=== PATIENT | female | born 1930 | race Caucasian/White ===

== ENCOUNTER 2017-04-09 12:51 | Emergency (ER) | payer MEDICARE ==
[~2017-04-09] VITALS: Ht 149.9 cm; Wt 58.2 kg
[~2017-04-09 12:51] MED LIST: ASPI-628 PO; ATEN25TA PO; CLOP75TA3 PO; DONE5TAB4 PO; LISI1TAB9 PO; NITROSTAT; NORT10CA PO; OMEP20CA11 PO; SIMV40TA5 PO
[2017-04-09 13:06] VITALS: BP 165/49; PULSE 76; RESP 18; O2SAT 99
[2017-04-09 14:29] LABS: APPEARANCE,URINE HAZY (CLEAR,HAZY); COLOR,URINE STRAW (YELLOW); OCCULT BLOOD,URINE SMALL (NEGATIVE); PH,URINE 7.5 (5.0-8.0); UROBILINOGEN,URINE NORMAL (NORMAL)
--- NOTE | 2017-04-09 14:30 | ED.REPORT ---
HPI-Dizziness / Weakness Date of Service Apr 09, 2017 ED Provider: Elmer Guzman PA-C Gina is an 86-year-old female with a history of dementia, CVA, CAD presenting via EMS for evaluation following an episode of dizziness. Her reports that at approximately 11:30 this morning as she was putting on her makeup in the bathroom she called to him that she was dizzy and could not move. He helped her to a seated position. She did not fall, strike her head, lose consciousness. Family reports that she complained of abdominal pain and weakness, though she denies it currently. Denies neurological symptoms such as weakness, difficulty speaking, asymmetrical facial motion. Denies chest pain , palpitations, cough, wheeze, shortness of breath, headache, vomiting, diarrhea , dysuria, hematuria, frequency. Nursing Notes Stated Complaint: ABDOMINAL PAIN Chief Complaint: General Complaint Nursing Notes Reviewed: Yes Allergies: Coded Allergies: No Known Allergies (Unverified Allergy, Unknown, 04/09/17) Scheduled ([Nitrostat]) VERIFY STRENGTH Aspirin (Aspir 81) 81 Mg Tablet. 81 MG PO DAILY Atenolol (Atenolol) 25 Mg Tablet 25 MG PO BID Clopidogrel Bisulfate (Plavix) 75 Mg Tablet 75 MG PO DAILY Donepezil (Aricept) 5 Mg Tablet 5 MG PO PM Lisinopril / HCTZ 20-12.5 mg (Lisinopril / HCTZ 20-12.5 mg) 1 Each Tablet 1 EACH PO DAILY Nitrofurantoin Macrocrystal (Nitrofurantoin Macrocrystal) 100 Mg Capsule 100 MG PO QID Nortriptyline (Nortriptyline) 10 Mg Capsule 10 MG PO DAILY AFTER DINNER Simvastatin (Simvastatin) 40 Mg Tablet 40 MG PO PM Scheduled PRN Omeprazole (Omeprazole) 20 Mg Capsule. 0 PO PRN PRN PRN FOR STOMACH General Time Seen by MD: 13:52 Chief Complaint Dizzy Past Medical History Past Medical History CAD CVA Past Surgical History Coronary bypass 25 Stent placement Review of Systems General: Denies fever, chills, malaise. HEENT: Denies congestion, headache, sore throat. Respiratory: Denies dyspnea, cough, shortness of breath, wheezing. Cardiovascular: Denies chest pain, palpitations. Gastrointestinal: Denies vomiting, diarrhea, abdominal pain. Genitourinary: Denies frequency, urgency, dysuria, hematuria. Otherwise as noted in HPI. Physical Exam General: Well appearing, well developed, well nourished, no acute distress. Head: Atraumatic, normocephalic. No mastoid tenderness. Eyes: No scleral icterus or injection. No discharge. PERRL. Vision grossly intact. Ears: Pinna and tragus nontender with manipulation. External auditory canal patent, atraumatic and without discharge. Tympanic membrane pandya, shiny and translucent without fluid, bulging, retraction or perforation. Hearing grossly intact. Nose: Symmetrical, nares patent without discharge. No frontal or maxillary sinus tenderness. Mouth/pharynx: normal dentition, mucus membranes moist. Tonsils 2+ and symmetrical, uvula midline. Pharynx noninjected, no cobblestoning or discharge. Voice clear. Neck: No tenderness or lymphadenopathy. Trachea midline. Respiratory: Regular rate and rhythm. Breath sounds present, clear to auscultation and equal bilaterally. No respiratory distress. No increased work of breathing, speaks in complete sentences. Cardiovascular: Regular rate and rhythm, without murmur, gallop or rub. No pedal edema. Gastrointestinal: Abdomen flat and non-tender without guarding or rebound. Bowel sounds normoactive. Skin: Warm and dry. Back: Normal to inspection, negative CVA tenderness. Neurological: Normal finger-nose, rapid hand, heel-mahmood. Negative pronator or leg drift. Cranial nerves: Vision grossly intact, PERRL, EOMI. Facial motion symmetrical, sensation to light touch over forehead, maxilla and mandible present and equal B /L. Voice clear and fluent, no drooling/pooling of saliva, uvula rises midline. Psychological: Alert and oriented. Speech appropriate, linear and logical. Behavior appropriate. Difficulty recalling events of the day. Initial Vital Signs Vital Signs (First) Date Time Temp Pulse Resp B/P Pulse Ox O2 Delivery O2 Flow Rate FiO2 04/09/17 13:06 36.5 76 18 165/49 99 Room Air Elevated blood pressure Interpretation & Diagnostics Lab Results Interpretation Result Diagram: 04/09/17 1425 04/09/17 1425 Test 04/09/17 14:04 04/09/17 14:25 Urine Color Straw (YELLOW) Urine Appearance Hazy (CLEAR,HAZY) Urine pH 7.5 (5.0-8.0) Urine Specific [place] 1.010 (1.003-1.035) Urine Protein Negativemg/dL (NEG,TRACE) Urine Glucose (UA) Negativemg/dL (NEGATIVE) Urine Ketones Negativemg/dL (NEGATIVE) Urine Occult Blood Small (NEGATIVE) Urine Nitrite Negative (NEGATIVE) Urine Bilirubin Negative (NEGATIVE) Urine Urobilinogen Normalmg/dL (NORMAL) Urine Leukocyte Esterase Moderate (NEGATIVE) Urine RBC 0-2/hpf (0-2) Urine WBC 11-50/hpf (0-5) Urine Epithelial Cells Occasional/hpf (NONE-MOD) Urine Crystals None seen (NONE SEEN) Urine Bacteria Moderate/hpf (NONE-FEW) Urine Hyaline Casts None/lpf (NONE) Urine Granular Casts None seen (NONE SEEN) Urine Waxy Casts None seen (NONE SEEN) Urine Red Blood Cell Casts None seen (NONE SEEN) Urine White Blood Cell Casts None seen (NONE SEEN) Urine Mucus None seen (None Seen) Urine Trichomonas None seen (NONE SEEN) Urine Yeast None (NONE SEEN) Urinalysis Comment Transitional epi Urine Culture Reflexed Indicated White Blood Count 8.5th/mm3 (3.8-10.1) Red Blood Count 3.91mil/mm3 (3.90-5.20) Hemoglobin 12.4g/dL (12.0-15.6) Hematocrit 37.9% (35.0-46.0) Mean Corpuscular Volume 96.9fL (81-100) Mean Corpuscular Hemoglobin 31.7pg (27.0-35.0) Mean Corpuscular Hemoglobin Concent 32.7% (32.0-37.0) Red Cell Distribution Width 12.8% (12.3-15.4) Platelet Count 179bil/L (150-400) Neutrophils (%) (Auto) 72.7% (40-74) Lymphocytes (%) (Auto) 15.9% (14-46) Monocytes (%) (Auto) 10.5% (4-12) Eosinophils (%) (Auto) 0.5% (0-5) Basophils (%) (Auto) 0.2% (0-3) Sodium Level 141mEq/L (134-144) Potassium Level 4.4mEq/L (3.5-5.2) Chloride Level 104mEq/L (97-108) Carbon Dioxide Level 25mmol/L (18-29) Blood Urea Nitrogen 12mg/dL (8-27) Creatinine 0.60mg/dL (0.57-1.00) Estimat Glomerular Filtration Rate 135mL/min (>59) Glucose Level 88mg/dL (60-99) Calcium Level 8.8mg/dL (8.5-10.1) Magnesium Level 2.3mg/dL (1.6-2.6) Total Bilirubin 0.3mg/dL (0.0-1.2) Aspartate Amino Transf (AST/SGOT) 18U/L (0-50) Alanine Aminotransferase (ALT/SGPT) 10U/L (0-32) Alkaline Phosphatase 50U/L (25-165) Total Protein 6.3g/dL (6.4-8.4) Albumin 3.8g/dL (3.4-5.0) Lipase 35U/L (13-60) Hold Jose Top Tube Received (Received) Re-Eval/Medical Decision Med Decision/Clinical Course 86-year-old female with a history of dementia, coronary artery disease, CVA presenting via EMS after a single episode of dizziness and weakness and associated abdominal pain which occurred while standing in her bathroom, putting on her makeup. She was helped to a seated position by her , denies striking her head, losing consciousness, neck pain, chest pain, palpitations, shortness of breath. Denies other complaints. Patient immediately states she feels well and wishes to go home. Physical examination reveals a oriented but mildly confused woman with a normal neurological evaluation. Heart tones normal, lungs clear, abdomen nontender. EKG is reassuring and unchanged from previous. CMP is unimpressive, CBC is normal. Urinalysis is suggestive of possible UTI with a hazy appearance small occult blood moderate leukocyte esterase, 11-50 white blood cells and moderate urine bacteria.l Discussed the possibility of performing a CT scan with the patient and her family. The patient does not wish to have this done. I expressed that my concern for intracranial bleeding or mass is quite low but that it would require CT to rule it out. CT is deferred. Patient and her family feel comfortable being discharged with return precautions. Provided prescription for nitrofurantoin. Advised regarding primary care follow-up, provided emergency return precautions. Patient verbalized understanding of, and consent to, the plan. I discussed this case with Dr. Garza, who expresses agreement. Patient Discharge & Departure Impression: Primary Impression: Cystitis Additional Impression: Pre-syncope Disposition: Home Discharge Condition All VS Reviewed: Yes Condition: Stable Additional Instructions: Evaluation for an episode of dizziness and weakness in the emergency department consists of history, physical examination, urinalysis, blood work and EKG all of which are reassuring that this is unlikely to have been caused by an immediately dangerous conditions such as a heart attack or stroke. I believe you are is stable and safe to go home. We did notice a urinary tract infection. We will treat this with nitrofurantoin , 100 mg to be taken 4 times a day for 7 days. This is best taken with food. Follow-up with your primary care provider early next week. Return to emergency department for any new or worsening symptoms including chest pain, shortness of breath, altered mental status, headache or stroke symptoms Referrals: Angel Wilder MD (PCP) EDSupervising Provider for APC: Edwin Garza MD, Allen L MD Turner, Seth PA-C Apr 09, 2017 14:30
[2017-04-09 14:35] LABS: BASOPHILS % (AUTO) 0.2 % (0-3); EOSINOPHILS % (AUTO) 0.5 % (0-5); MONOCYTES % (AUTO) 10.5 % (4-12); Mean Corpuscular Hemoglobin 31.7 pg (27.0-35.0); Mean Corpuscular Volume 96.9 fL (81-100); NEUTROPHILS % (AUTO) 72.7 % (40-74); Platelet Count 179 bil/L (150-400)
[2017-04-09 14:59] LABS: Magnesium 2.3 mg/dL (1.6-2.6)
[2017-04-09] MEDS ORDERED: NITR100C PO (15:24)
[2017-04-09 15:45] VITALS: BP 135/47; PULSE 79; RESP 16; O2SAT 99
== END 2017-04-09 15:46 | disposition home or self-care (01) ==
LOC: EDBD 12:51 → SED 12:51
DX: N30.90 Cystitis, unspecified without hematuria (principal); R55 Syncope and collapse; I25.10 Atherosclerotic heart disease of native coronary artery without angina pectoris; F03.90 Unspecified dementia, unspecified severity, without behavioral disturbance, psychotic disturbance, mood disturbance, and anxiety; Z86.73 Personal history of transient ischemic attack (TIA), and cerebral infarction without residual deficits; Z79.82 Long term (current) use of aspirin; Z95.5 Presence of coronary angioplasty implant and graft

== ENCOUNTER 2017-04-17 14:43 | Inpatient (IN) | payer MEDICARE ==
[~2017-04-17] VITALS: Ht 149.9 cm; Wt 62.6 kg
[2017-04-17] VITALS (8 sets, daily range): BP systolic 91–134; BP diastolic 28–64; PULSE 77–89; RESP 12–23; O2SAT 94–100
[~2017-04-17 14:43] MED LIST changes: +NITR100C PO
--- NOTE | 2017-04-17 14:56 | ED.REPORT ---
HPI-General Illness Date of Service Apr 17, 2017 ED Provider: Will Motley MD The patient is an 86-year-old female with a history of dementia, CVA, CAD presents to the ED via EMS accompanied by her family due to increased, generalized weakness for the past week and increasing in severity this morning. Associated symptoms include weakness, fever, shortness of breath, back pain, and increased confusion. This morning, her son was assisting her to the bathroom. The patient is normally independent and ambulatory, but today, she is having difficulty walking. Her reports she is more disoriented today then the past week. A week ago, (04/09/17) she came to the Emergency Department following an episode of dizziness at home. The patient was in the bathroom and called for her . She was standing up but unable to walk. She was diagnosed with a UTI and was mildly dehydrated. The patient was given fluids and discharged on antibiotics which she has been taking as directed. Her symptoms have not been improving. Her denies a cough, skin infections, recent falls or hit her head. The patient takes 0.25mg Ativan throughout the day and 1mg at bedtime. Nursing Notes Stated Complaint: WEAKNESS Chief Complaint: General Complaint Nursing Notes Reviewed: Yes Allergies: Coded Allergies: No Known Allergies (Unverified Allergy, Unknown, 04/17/17) Scheduled Acetaminophen (Acetaminophen) 500 Mg Capsule 500 MG PO TID Atenolol (Atenolol) 25 Mg Tablet 25 MG PO BID Clopidogrel Bisulfate (Plavix) 75 Mg Tablet 75 MG PO DAILY Levetiracetam (Keppra) 500 Mg Tablet 500 MG PO BID Mirtazapine (Remeron) 15 Mg Tablet 15 MG PO HS Nitrofurantoin Macrocrystal (Nitrofurantoin Macrocrystal) 100 Mg Capsule 100 MG PO QID Nortriptyline (Nortriptyline) 10 Mg Capsule 10 MG PO DAILY AFTER DINNER Simvastatin (Simvastatin) 40 Mg Tablet 40 MG PO PM Scheduled PRN Acetaminophen/Codeine 300-30mg (Acetaminophen/Codeine 300-30mg) 1 Each Tablet 1 TABLET PO 2000 daily PRN PRN Pain Docusate Sodium (Colace) 100 Mg Capsule 100 MG PO BID PRN PRN For Constipation Lorazepam (Ativan) 0.5 Mg Tablet 0.25 MG PO 1400 PRN PRN For Insomnia Omeprazole (Omeprazole) 20 Mg Capsule.dr 0 PO PRN PRN PRN FOR STOMACH General Time Seen by MD: 14:54 Chief Complaint Weakness Hx Obtained From: Patient, Spouse, Daughter Arrived By: Ambulance Sudden in Onset?: Yes Onset Occurred: 1 week ago Context of Onset: Recent antibiotic use Symptom Duration: Since onset Recent Healthcare: Recent doctor visit Similar Sx Previous: Yes Past Medical History Past Medical History CAD CVA Past Surgical History Coronary bypass 25 Stent placement Social History Other Social History: Good social support, , Local resident Ambulatory Status Independent Review of Systems Full Review of Systems Constitutional: Reports: Fever, Weakness - generalized Respiratory: Reports: Shortness of breath, Denies: Non-productive cough GI: Reports: Abdominal pain Musculoskeletal: Reports: Back pain Skin: Denies Rash Neurologic: Reports: Dizziness, Problem walking, Weakness, Denies: Change LOC Psychiatric: Reports: Confusion Complete sys rev & neg: except as marked. Physical Exam Vital Signs Vital Signs Date Time Temp Pulse Resp B/P Pulse Ox O2 Delivery O2 Flow Rate FiO2 04/17/17 18:32 77 20 91/43 94 Room Air 04/17/17 17:31 82 15 103/28 94 Room Air 04/17/17 16:38 37.2 86 12 114/33 96 04/17/17 15:19 85 23 123/33 100 Room Air 04/17/17 14:44 39.2 89 16 134/43 96 Room Air Initial VS: Reviewed General/Constitutional: Awake, Alert Head / Eyes: Atraumatic, Normocephalic, PERRL, EOMI ENT: Atraumatic, Mucous membranes moist Respiratory / Chest: No respiratory distress bibasilar crackles well healed sternotomy scar Cardiovascular: Heart rate NL, Regular rhythm, Heart sounds NL, No gallop, No murmurs, No rubs Abdomen: Non-tender, BS normoactive well-healed, mid-abdominal surgical scar Upper Extremities Upper Extremity / MS: Atraumatic, Inspection NL, No deformity Lower Extremity / Pelvis / MS: Atraumatic, Inspection NL, No deformity, No edema Right Leg / Calf: Negative: Swelling present..., Tenderness present... Left Leg / Calf: Negative: Swelling present..., Tenderness present... Neurologic: Oriented X3, Speech NL, No motor deficits speech fluent Psychiatric: Affect NL, Mood NL Interpretation & Diagnostics Lab Results Interpretation Result Diagram: 04/17/17 1450 04/17/17 1450 Test 04/17/17 14:50 04/17/17 15:10 White Blood Count 18.6th/mm3 (3.8-10.1) Red Blood Count 4.06mil/mm3 (3.90-5.20) Hemoglobin 13.0g/dL (12.0-15.6) Hematocrit 39.3% (35.0-46.0) Mean Corpuscular Volume 96.8fL (81-100) Mean Corpuscular Hemoglobin 32.0pg (27.0-35.0) Mean Corpuscular Hemoglobin Concent 33.1% (32.0-37.0) Red Cell Distribution Width 13.1% (12.3-15.4) Platelet Count 170bil/L (150-400) Neutrophils (%) (Auto) 91.0% (40-74) Lymphocytes (%) (Auto) 1.3% (14-46) Monocytes (%) (Auto) 6.6% (4-12) Eosinophils (%) (Auto) 0.5% (0-5) Basophils (%) (Auto) 0.1% (0-3) Sodium Level 133mEq/L (134-144) Potassium Level 4.1mEq/L (3.5-5.2) Chloride Level 96mEq/L (97-108) Carbon Dioxide Level 22mmol/L (18-29) Blood Urea Nitrogen 20mg/dL (8-27) Creatinine 0.77mg/dL (0.57-1.00) Estimat Glomerular Filtration Rate 101mL/min (>59) Glucose Level 158mg/dL (60-99) Calcium Level 9.1mg/dL (8.5-10.1) Total Bilirubin 0.5mg/dL (0.0-1.2) Aspartate Amino Transf (AST/SGOT) 20U/L (0-50) Alanine Aminotransferase (ALT/SGPT) 10U/L (0-32) Alkaline Phosphatase 50U/L (25-165) Troponin T < 0.010ug/L (0.0-0.011) Total Protein 6.8g/dL (6.4-8.4) Albumin 3.7g/dL (3.4-5.0) Urine Color Dark yellow (YELLOW) Urine Appearance Clear (CLEAR,HAZY) Urine pH 7.0 (5.0-8.0) Urine Specific [place] 1.015 (1.003-1.035) Urine Protein Negativemg/dL (NEG,TRACE) Urine Glucose (UA) Negativemg/dL (NEGATIVE) Urine Ketones Negativemg/dL (NEGATIVE) Urine Occult Blood Small (NEGATIVE) Urine Nitrite Negative (NEGATIVE) Urine Bilirubin Negative (NEGATIVE) Urine Urobilinogen Normalmg/dL (NORMAL) Urine Leukocyte Esterase Trace (NEGATIVE) Urine RBC 11-50/hpf (0-2) Urine WBC 0-5/hpf (0-5) Urine Epithelial Cells Few/hpf (NONE-MOD) Urine Crystals None seen (NONE SEEN) Urine Bacteria Few/hpf (NONE-FEW) Urine Hyaline Casts None/lpf (NONE) Urine Granular Casts None seen (NONE SEEN) Urine Waxy Casts None seen (NONE SEEN) Urine Red Blood Cell Casts None seen (NONE SEEN) Urine White Blood Cell Casts None seen (NONE SEEN) Urine Mucus Present (None Seen) Urine Trichomonas None seen (NONE SEEN) Urine Yeast None (NONE SEEN) Urinalysis Comment None Urine Culture Reflexed Indicated Lactic Acid Level 1.6mmol/L (0.4-2.0) X-Ray Chest Interpretation Chest Xray Interpretation: CHEST X-RAY IMPRESSION: 1. Small pleural effusions and mild pulmonary edema. Dictated by: Ryne Hui M.D. on 04/17/2017 at 17:33 Approved by: Ryne Hui M.D. on 04/17/2017 at 17:34 View: Portable Interpretation / Wet Read by: Interpret - Radiologist CT Abd / Pelvis Interpretation ABDOMINAL CT IMPRESSION: 1. No imaging evidence of pyelonephritis. No hydronephrosis or perinephric abscess. 2. Bilateral indeterminate adrenal nodules. Further evaluation may be obtained with adrenal protocol MRI or CT if clinically indicated. 3. Small hiatal hernia. 4. Colonic diverticulosis. Dictated by: Ryne Hui M.D. on 04/17/2017 at 17:07 Approved by: Ryne Hui M.D. on 04/17/2017 at 17:12 Study type: Abdominal CT no contrast Interpretation / Wet Read by: Interpret - Radiologist Re-Eval/Medical Decision Med Decision/Clinical Course The patient is an 86-year-old female with a history of dementia, CVA, CAD presents to the ED via EMS accompanied by her family due to increased, generalized weakness for the past week and increasing in severity this morning. Associated symptoms include weakness, fever, shortness of breath, back pain, and increased confusion. This morning, her son was assisting her to the bathroom. The patient is normally independent and ambulatory, but today, she is having difficulty walking. Her reports she is more disoriented today then the past week. A week ago, (04/09/17) she came to the Emergency Department following an episode of dizziness at home. The patient was in the bathroom and called for her . She was standing up but unable to walk. She was diagnosed with a UTI and was mildly dehydrated. The patient was given fluids and discharged on antibiotics which she has been taking as directed. Her symptoms have not been improving. Her denies a cough, skin infections, recent falls or hit her head. The patient takes 0.25mg Ativan throughout the day and 1mg at bedtime. Here in the emergency department the patient is febrile with a temperature of 39 though otherwise hemodynamically stable. She is generally well-appearing. Laboratory studies notable as below: CBC with leukocytosis: 18.6 CMP unremarkable Troponin negative Lactic acid: 1.6 UR: trace leukocytes WBC: 0-5 UA: few bacteria - equivocal for UTI EKG sinus rhythm rate 88 normal axis borderline prolonged SC interval nonspecific repolarization abnormality most notable in anterior lateral leads when compared to prior 04/09/17 no acute change present ABDOMINAL CT IMPRESSION: 1. No imaging evidence of pyelonephritis. No hydronephrosis or perinephric abscess. 2. Bilateral indeterminate adrenal nodules. Further evaluation may be obtained with adrenal protocol MRI or CT if clinically indicated. 3. Small hiatal hernia. 4. Colonic diverticulosis. CHEST X-RAY IMPRESSION: 1. Small pleural effusions and mild pulmonary edema. 1558: Plan to order blood cultures The cause of the patient's fever and leukocytosis remains unclear. Urinary tract infection seems most likely diagnosis. Chest x-ray demonstrated no focal pneumonia. Examination of the skin reveals no abscess or cellulitis. She is without any meningismus or neck stiffness. My suspicion for acute bacterial meningitis is relatively low. Given history of recent UTI I considered possibility of renal abscess as well as other acute surgical intra-abdominal processes. CT scan as above however was relatively unremarkable. Here in the emergency department the patient's blood pressure down trended and she became borderline hypotensive. Due to concern for evolving sepsis I administered fluid boluses with improvement in her blood pressure. She was started on broad- spectrum antibiotics with IV vancomycin and Zosyn. She was admitted to the CCU after discussing with the accepting hospitalist. She was transferred in stable condition with plan for ongoing workup and treatment of her acute infectious process. Her clinical picture remains somewhat unclear at this time. Counseled Regarding: Diagnosis, Lab results, Need for admission Discharge & Departure Primary Impression: Fever Fever type: unspecified Qualified Code: R50.9 - Fever, unspecified Additional Impressions: Sepsis Sepsis type: sepsis due to unspecified organism Qualified Code: A41.9 - Sepsis, unspecified organism Urinary tract infection Urinary tract infection type: site unspecified Hematuria presence: without hematuria Qualified Code: N39.0 - Urinary tract infection, site not specified Hypotension Hypotension type: unspecified hypotension type Qualified Code: I95.9 - Hypotension, unspecified Leukocytosis Leukocytosis type: unspecified Qualified Code: D72.829 - Elevated white blood cell count, unspecified Altered mental status Altered mental status type: unspecified Qualified Code: R41.82 - Altered mental status, unspecified Disposition: ADMITTED TO HOSPITAL Discharge Condition All VS Reviewed: Yes Condition: Stable Referrals: Angel Wilder MD (PCP) Crit Care Except Billable Proc Time Spent: 105-134 minutes Services Performed: Patient management by me, Time spent at bedside, Reviewing test results, Reviewing imaging, Discussing patient care, Documentation in record, Time with fam/surrogate Scribe Attestation Portion of this note were transcribed by Allyssa Patel. I, Dr. Motley, personally performed the history, physical exam, and medical decision-making: I reviewed and confirmed the accuracy for the information in the transcribed note. Signed by: enedelia Fritz, 04/17/17 1800 copies to: Angel Wilder MD, Beck O MD Apr 17, 2017 14:56 Allyssa Patel Apr 17, 2017 15:42
[2017-04-17] MEDS ORDERED: 0.9% Sodium Chloride 1,000 ML IV ONE (14:59)
[2017-04-17] MEDS ORDERED: ACET1TAB42 PO (15:11)
[2017-04-17] MEDS ORDERED: LORA-302 PO (15:11)
[2017-04-17] MEDS ORDERED: DOCU-41 PO (15:11)
[2017-04-17] MEDS ORDERED: ACET500C49 PO (15:11)
[2017-04-17] MEDS ORDERED: MIRT15TA PO (15:11)
[2017-04-17] MEDS ORDERED: KEP500TA PO (15:11)
[2017-04-17 15:16] LABS: BASOPHILS % (AUTO) 0.1 % (0-3); EOSINOPHILS % (AUTO) 0.5 % (0-5); MONOCYTES % (AUTO) 6.6 % (4-12); Mean Corpuscular Volume 96.8 fL (81-100); Platelet Count 170 bil/L (150-400)
[2017-04-17 15:39] LABS: APPEARANCE,URINE CLEAR (CLEAR,HAZY); COLOR,URINE DARK YELLOW (YELLOW)
[2017-04-17 15:40] LABS: OCCULT BLOOD,URINE SMALL (NEGATIVE); UROBILINOGEN,URINE NORMAL (NORMAL)
[2017-04-17 15:43] LABS: TROPONIN T < 0.010 ug/L (0.0-0.011)
[2017-04-17] MEDS ORDERED: Alum-Mag Hydrox-Simeth 30 mL Suspension PO PRN ×2 (16:00→18:30)
[2017-04-17] MEDS ORDERED: Ondansetron 2 mg/mL 2 mL Inj IVPUSH PRN ×2 (16:00→18:30)
--- NOTE | 2017-04-17 17:14 | DRSVH ---
PROCEDURE: CT ABDOMEN AND PELVIS WITH CONTRAST ([id number]) INDICATIONS: abd pain, fever, h/o uti, renal abscess? TECHNIQUE: After the administration of oral and intravenous contrast, 5 mm thick sections acquired from the diap hragms to the symphysis. 5 mm thick coronal and sagittal reformats were performed. For radiation do se reduction, the following was used: automated exposure control, adjustment of mA and/or kV accordi ng to patient size. COMPARISON: None. FINDINGS: Image quality: Excellent. ABDOMEN: Lung bases: There is dependent atelectasis in the lungs bilaterally. Heart size is normal. There is a small hiatal hernia. Solid organs: Liver and spleen are normal in size and enhancement. Gallbladder is surgically absent . Biliary system is non-dilated. Pancreas enhances normally. There are bilateral adrenal nodules, measuring up to 1.6 cm the left and 1.0 cm on the right. Kidneys demonstrate symmetric enhancement w ithout hydronephrosis or perinephric fluid collections. There is an exophytic right renal cyst. A f ew small low density round hypoattenuating lesions are demonstrated in the kidneys bilaterally which are too small to characterize but likely represent cysts. Peritoneum and bowel: Stomach, small bowel, and colon loops are normal in caliber and wall thickness . There is colonic diverticulosis without acute diverticulitis. No free fluid or air. Nodes and vessels: No retroperitoneal or mesenteric adenopathy. Aorta and inferior vena cava are no rmal in caliber. Miscellaneous: No ventral hernias. PELVIS: Genitourinary: Bladder wall thickness is normal. The uterus is surgically absent. Miscellaneous: No inguinal hernias or adenopathy. Bones: No suspicious bony lesions. No vertebral body compression fractures. IMPRESSION: 1. No imaging evidence of pyelonephritis. No hydronephrosis or perinephric abscess. 2. Bilateral indeterminate adrenal nodules. Further evaluation may be obtained with adrenal protoco l MRI or CT if clinically indicated. 3. Small hiatal hernia. 4. Colonic diverticulosis. Dictated by: Ryne Hui M.D. on 04/17/2017 at 17:07 Approved by: Ryne Hui M.D. on 04/17/2017 at 17:12
--- NOTE | 2017-04-17 17:36 | DRSVH ---
PROCEDURE: X-RAY CHEST, TWO VIEWS ([id number]) INDICATIONS: WEAK, DEMENTIA, PNA? TECHNIQUE: 2 views of the chest were acquired. COMPARISON: [facility], , CHEST 1VW (PORTABLE), 02/26/2014, 16:15. FINDINGS: Surgical changes and devices: None. Lungs and pleura: There are small bilateral pleural effusions and mild pulmonary edema. Linear biba silar opacities also demonstrated compatible with compressive atelectasis. Mediastinum: Mediastinal contours are unchanged. Heart size is normal. Bones and chest wall: No suspicious bony abnormalities. Soft tissues appear unremarkable. IMPRESSION: 1. Small pleural effusions and mild pulmonary edema. Dictated by: Ryne Hui M.D. on 04/17/2017 at 17:33 Approved by: Ryne Hui M.D. on 04/17/2017 at 17:34
[2017-04-17] MEDS ORDERED: Vancomycin Dose per Pharmacist XX ONE (17:50)
[2017-04-17] MEDS ORDERED: Piperacillin-Tazo 3.375 Gm Inj 3.375 GM in Dextrose 5% Minibag Plus 50 ML IV ONE (17:50)
[2017-04-17] MEDS ORDERED: Vancomycin Inj 1,000 MG in IV Premix 1 EACH IV ONE (18:00)
[2017-04-17] MEDS ORDERED: Polyethylene Glycol (PEG) 17 Gm Powder PO PRN (18:30)
[2017-04-17] MEDS: Heparin 5,000 Unit/mL Inj SUBQ SCH (18:30)
--- NOTE | 2017-04-17 19:41 | PCM.HPMED ---
Subjective Date of Service Apr 17, 2017 Primary Provider: Admitting Physician: Farzana Corado DO Primary Care Physician: Marty Barber MD Attending Physician: Farzana Corado DO Admit Status: From the Emergency Department, Admit to [facility] Team Chief Complaint: 86-year-old woman with dementia, coronary artery disease and cerebrovascular disease presents with sepsis History of Present Illness: The patient has moderate dementia and requires assistance with self care provided by her at baseline. Actually one week ago she began to experience presyncopal symptoms and worsened ambulation. She was evaluated at emergency department and treated for urinary tract infection. Urinalysis showed 11-50 pyuria, but culture showed only 25,000 CFU of normal lakshmi. She returned home on nitrofurantoin, but continued to be intermittently less active and more confused. On day of admission she awakened approximate 6 AM and identified abdominal pain. She was able to eat breakfast and take morning medications with assistance. Later in the morning she experienced worsened confusion, difficulty in ambulation, confused speech, and increasing complaints of abdominal pain. She was observed to breathe hard at times and report severe chills. She felt febrile. She did not report headache, neck ache, cough, chest pain. Review of Systems: The patient is not able to comply with review of systems due to dementia. She answers simple question and denies pain, headache, shortness of breath. She does endorse the lateral lower quadrant left greater than right abdominal pain with palpation. Allergies Coded Allergies: No Known Allergies (Unverified Allergy, Unknown, 04/17/17) Home Medications Acetaminophen 500 mg 3 times a day Tylenol No. 3 30/300 when necessary Atenolol 25 mg twice a day Clopidogrel 75 mg daily Docusate 100 mg twice a day Levetiracetam 500 mg twice a day Lorazepam .25 mg 4 times a day Lorazepam 1 mg daily at bedtime Mirtazapine 15 mg daily at bedtime Nortriptyline 10 mg daily Omeprazole 20 mg when necessary Simvastatin 40 mg daily PMH # Coronary artery disease status post CABG 1994, status post stents greater than 1 year ago # CVA 2013 # Dementia # Seizure disorder # Chronic or recurrent colitis symptoms - mostly quiescent in recent years Social History Hx Alcohol Use: No (hx: of One glass of wine 5 days during the week. ) Hx Substance Use: No Hx Tobacco Use: No Smoking Status: Former Smoker Living Arrangement: with Family (at home with her , daughter nearby. No mobility impairment. Requires assistance with basic ADLs.) Exam Vital Signs Vital Sign - Last Date Time Temp Pulse Resp B/P Pulse Ox O2 Delivery O2 Flow Rate FiO2 04/17/17 18:50 77 20 91/43 94 Room Air 04/17/17 16:38 37.2 Exam General: Elderly pale woman hollow under many covers HEENT: sclerae anicteric, oral mucosa moist, neck supple, no sinus or jaw pain Neck: no JVD Chest: clear to auscultation with basilar crackles Cardiac: S1S2, no murmur, regular Abdomen: BS present, mildly tender in lower quadrants left greater than right Extremities: Trace pitting edema, moderate nonpitting edema; no asymmetric leg swelling. Neuro: Alert to simple questions with somewhat appropriate response, cranial nerves symmetric, motor strength 5/5, coordination grossly normal Lab and Diagnostics Result Diagram: 04/17/17 1450 04/17/17 1450 X-Rays, CTs and MRIs PROCEDURE: CT ABDOMEN AND PELVIS WITH CONTRAST ([id number]) IMPRESSION: 1. No imaging evidence of pyelonephritis. No hydronephrosis or perinephric abscess. 2. Bilateral indeterminate adrenal nodules. Further evaluation may be obtained with adrenal protocol MRI or CT if clinically indicated. 3. Small hiatal hernia. 4. Colonic diverticulosis. Dictated by: Ryne Hui M.D. on 04/17/2017 at 17:07 PROCEDURE: X-RAY CHEST, TWO VIEWS ([id number] IMPRESSION: 1. Small pleural effusions and mild pulmonary edema. Dictated by: Ryne Hui M.D. on 04/17/2017 at 17:33 . 12-lead ECG Probable WAP, rate 88, conduction intervals normal, ST segments unremarkable. Assessment & Plan 86-year-old woman with dementia cerebrovascular and coronary artery disease presents with approximately 1 week of functional decline and acute fever and septic syndrome. # Probable sepsis, acute present on admission. SIRS findings included leukocytosis and fever. Relative hypotension with systolic blood pressure 91/ 43. Not tachycardic but on beta dillon. Lactic acidosis is mild 1.6 at admission.. No significant acute kidney injury or hepatobiliary abnormalities. - Fluid resuscitation with normal saline as needed - Antibiotics -received vancomycin and Zosyn in emergency department on 04/17/17. - Monitor urine output and maintain mean arterial pressure greater than 65 mmHg # Probable enteric infection, present on admission. Symptoms localized to her abdomen. Tender to palpation, although CT imaging unremarkable. Quite likely localized lesion with high probability of gram-negative sepsis in light of her chills, recurrent hypotension. Early stage of C. difficile colitis is possible but her only recent antibiotic exposure is nitrofurantoin which is low risk. Current urinalysis does not suggest this is a urinary source. - Continue Zosyn - Hold on further vancomycin - Await results of culture data # Hyperglycemia, acute, present on admission. Blood glucose 158 on admission. She has no history of diabetes. Likely related to stress of sepsis - 4 times a day blood glucose checks - We will order insulin therapy if blood glucose greater than 180. # Pleural effusion, possible pulmonary edema. Currently with no respiratory distress on admission. She is very high risk for acute diastolic congestive heart failure. - Monitor respiratory status with fluid resuscitation and discontinue fluids promptly if she develops symptomatic pulmonary edema or hypoxia. # Seizure disorder - Continue Keppra # Dementia, chronic. With acute metabolic encephalopathy due to sepsis. - Hold nortriptyline and mirtazapine as these are not acutely needed. - She is habituated to low-dose benzodiazepine which we will continue to prevent withdrawal, albeit with risk of paradoxical delirium # Coronary and cerebrovascular disease, chronic - Continue metoprolol and clopidogrel # DVT prophylaxis with heparin Disposition: She is admitted with inpatient status with expectation of several days of acute inpatient care for sepsis. Pain Evaluation: Adequate Pain Control GI Prophylaxis: H2 dillon VTE Prophylaxis: Sub-Q Heparin (Unfractionated) Resuscitation Status: DNR/DNI:Do Not Resuscitate/Intubate Time spent 60 minutes Mendoza Medeiros MD Apr 17, 2017 19:41
--- NOTE | 2017-04-17 20:03 | PCM.ADCARE ---
Advance Care Planning Note Purpose of Encounter: Clarify goals of care and prior directives regarding ACLS and life support Parties in Attendance: Patient, who is non-decisional. who is her primary care provider, daughter and son-in-law. Decisional Capacity: Patient has chronic dementia requiring assistance with ADLs and is not decisional. Current mental status worsened due to metabolic encephalopathy. is her medical decision maker and primary care provider. Subjective: Patient is currently living in her own home with her 's assistance for self hygiene care and dressing. She ambulates in the home but does not conduct self-directed activities. She joins her to shop and pay social visits. She is calm and does not suffer from pain at baseline she does require antianxiety medications regularly. Objective: She is currently admitted with sepsis. She is at high risk for congestive heart failure given her cardiac history. Goals of Care Determinations: Her daughter and son-in-law voiced that the patient and her had both considered and elected never to have advanced life support. We discussed the possibility of unexpected cardiac dysrhythmia and the risks and benefits of CPR and ACLS resuscitation. They understand that the probability of successful recovery to resume prior quality of life would be low in this event. They were clear that her prior wishes understood by her were to decline CPR and ACLS. They would not endorse advance feeding support or mechanical ventilation. Plan: Family request to complete the POLST form. They wish full medical care for reversible conditions at the present time include treatment with fluids and antibiotics for her sepsis. CODE STATUS: DNR/DNI Time Spent Adv.Care Plannin minutes Adv. Care Plan Documenation: POLST to be completed Mendoza Medeiros MD Apr 17, 2017 20:03
[2017-04-17] MEDS: levETIRAcetam 500 mg Tablet PO SCH (20:30)
[2017-04-17] MEDS: 0.9% Sodium Chloride 1,000 ML IV SCH (20:36)
[2017-04-17] MEDS: LORazepam 0.5 mg Tablet PO SCH (22:16)
[2017-04-18] VITALS (9 sets, daily range): BP systolic 117–135; BP diastolic 52–64; PULSE 80–97; RESP 14–20; O2SAT 92–96
[2017-04-18] MEDS: Heparin 5,000 Unit/mL Inj SUBQ SCH ×3 (00:30→18:11)
[2017-04-18] MEDS: Piperacillin-Tazo 3.375 Gm Inj 3.375 GM in Dextrose 5% Minibag Plus 50 ML IV SCH ×3 (01:14→18:10)
[2017-04-18 03:11] LABS: Mean Corpuscular Hemoglobin 31.7 pg (27.0-35.0); Mean Corpuscular Volume 97.7 fL (81-100)
[2017-04-18] MEDS: 0.9% Sodium Chloride 1,000 ML IV SCH ×2 (04:26→11:42)
[2017-04-18] MEDS: levETIRAcetam 500 mg Tablet PO SCH ×3 (08:30→20:30)
[2017-04-18] MEDS: LORazepam 0.5 mg Tablet PO SCH ×4 (09:17→20:31)
--- NOTE | 2017-04-18 10:00 | NUR ---
Evaluation completed. Please go to "Notes" then click on "Assessments and Notes" (bottom left corner of screen). Then select appropriate discipline tab on top of screen.
--- NOTE | 2017-04-18 10:31 | NUR ---
Evaluation completed. Please go to "Notes" then click on "Assessments and Notes" (bottom left corner of screen). Then select appropriate discipline tab on top of screen.
[2017-04-19] VITALS (8 sets, daily range): BP systolic 102–119; BP diastolic 47–77; PULSE 95–155; RESP 17–23; O2SAT 95–97
[2017-04-19] MEDS: Heparin 5,000 Unit/mL Inj SUBQ SCH ×4 (00:30→23:52)
[2017-04-19] MEDS: Piperacillin-Tazo 3.375 Gm Inj 3.375 GM in Dextrose 5% Minibag Plus 50 ML IV SCH ×4 (01:39→23:49)
--- NOTE | 2017-04-19 03:30 | NUR ---
Mentation/Family/GI/Afebrile Pt became restless after her left and needed a sitter. Pt has been asleep since the arrival of the sitter. Pt will have family available to be with her during the daytime. Pt's should arrive to pt's room at approximately 0700. Pt had a loose BM in the bed and in the BSC. Pt did not c/o abdominal pain prior, during, or after the bout of diarrhea. Pt has been afebrile throughout the shift.
[2017-04-19 04:20] LABS: Mean Corpuscular Hemoglobin 31.3 pg (27.0-35.0); Mean Corpuscular Volume 98.1 fL (81-100)
[2017-04-19] MEDS: LORazepam 0.5 mg Tablet PO SCH ×4 (05:41→20:55)
[2017-04-19] MEDS: 0.9% Sodium Chloride 1,000 ML IV SCH ×3 (06:11→23:42)
[2017-04-19] MEDS: levETIRAcetam 500 mg Tablet PO SCH ×2 (08:34→20:56)
[2017-04-19] MEDS ORDERED: Diltiazem 5 mg/mL 5 mL Inj IVPUSH ONE ×3 (10:00→22:05)
--- NOTE | 2017-04-19 15:43 | NUR ---
Social Work Note: Initial Assessment Data& Assessment: EMR Reviewed. SW met with pt, pt and pt daughter at bedside to discuss discharge planning, SW role explained. Gina Wilder is a 86 year old female admitted on 04/17/2017 for Fever, Sepsis and AMS. Pt has Medicare and [employer] supplemental insurance coverage. Pt sees Jean Marie Barber MD for primary care. Pt lives in [place] at home with her spouse and is independent at baseline with ADL's. Pt uses a FWW for ambulation. Pt does have dementia at baseline and requires assistance from her spouse and daughter for medication management. Pt does not drive. Pt does not have HH hx. Pt has been to [facility] three years ago for rehab. Pt does not have LT insurance or VA benefits. Pt has [employer] paperwork completed, SW requested a copy when possible. PT saw pt on 04/18 and was recommending SNF at that time as pt ambulated 20ft with walker. PT was held today for clinical reasons. ST saw pt and recommended HH vs. outpt ST. SW to follow for final PT recommendations and MD orders. SW to continue to follow. Pt family denies any other needs at this time. "Your Discharge Planning Checklist" was provided to pt and pt family to review prior to D/C. Plan: Anticipated discharge home with home health vs. SNF pending final PT evaluation and MD orders. SW to follow up with pt and pt family regarding Discharge plan pending MD order. Pt family denies any needs at this time. SW to continue to follow. SALINA Sidhu Addendum: 04/19/17 at 1549 by NEIDA SALCEDO Amended: Links added.
--- NOTE | 2017-04-19 17:48 | PCM.PNMED ---
Subjective Date of Service Apr 19, 2017 Subjective Gina Wilder is a 86-year-old woman with dementia cerebrovascular and coronary artery disease presents with approximately 1 week of functional decline and acute fever and septic syndrome. Now under treatment for A fib with RVR. Overnight: No acute events. Today: The patient states she feels well and would like to go home. She denies any chest pain, palpitations, chills or fever. The remainder of ROS is negative except as note above. Exam Vital Signs Vital Sign - Last Date Time Temp Pulse Resp B/P Pulse Ox O2 Delivery O2 Flow Rate FiO2 04/19/17 16:00 36.9 140 20 119/77 95 Room Air Intake and Output 04/18/17 04/18/17 04/19/17 Cumulative From/Thru 14:59 22:59 06:59 04/17/17 14:44 - 04/19/17 06:12 Intake Total 1444 ml 1387 ml 5871 ml Output Total 600 ml 1300 ml Balance 1444 ml 787 ml 4571 ml Intake Oral 50 ml 100 ml 300 ml IV Total 1394 ml 1287 ml 5571 ml Output Urine Total 700 ml Urine/Stool Mix 600 ml 600 ml # Bowel Movements 3 3 Exam General: Elderly pale woman appears comfortable in a hospital bed. HEENT: sclerae anicteric, oral mucosa moist, neck supple, no sinus or jaw pain Neck: no JVD Chest: clear to auscultation with basilar crackles Cardiac: S1S2, no murmur, irregular rhythm, normal rate. Abdomen: BS present, mildly tender in lower quadrants left greater than right Extremities: Trace pitting edema, moderate nonpitting edema; no asymmetric leg swelling. Neuro: Alert to simple questions with somewhat appropriate response, cranial nerves symmetric, motor strength 5/5, coordination grossly normal Lab and Diagnostics Result Diagram: 04/19/17 0350 04/18/17 0245 X-Rays, CTs and MRIs CT ABDOMEN AND PELVIS WITH CONTRAST IMPRESSION: 1. No imaging evidence of pyelonephritis. No hydronephrosis or perinephric abscess. 2. Bilateral indeterminate adrenal nodules. Further evaluation may be obtained with adrenal protocol MRI or CT if clinically indicated. 3. Small hiatal hernia. 4. Colonic diverticulosis. Dictated by: Ryne Hui M.D. on 04/17/2017 at 17:07 PROCEDURE: X-RAY CHEST, TWO VIEWS IMPRESSION: 1. Small pleural effusions and mild pulmonary edema. Dictated by: Ryne Hui M.D. on 04/17/2017 at 17:33 12-lead ECG Probable WAP, rate 88, conduction intervals normal, ST segments unremarkable. Assessment & Plan 8Gina Wilder is a 86-year-old woman with dementia cerebrovascular and coronary artery disease presents with approximately 1 week of functional decline and acute fever and septic syndrome. Now under treatment for A fib with RVR. A fib with RVR, not present on admission, no prior history of a fib. -May be paroxysmal due to stress. Responded well to IV push of Cardizem 25 mg, may need to repeat. -Consider increasing atenolol dose. If remains in a fib will need to discuss anticoagulation. Probable sepsis, acute present on admission. Resolved. SIRS findings included leukocytosis and fever. Relative hypotension with systolic blood pressure 91/ 43. Not tachycardic but on beta dillon. Lactic acidosis is mild 1.6 at admission.. No significant acute kidney injury or hepatobiliary abnormalities. -Cultures negative so far - Fluid resuscitation with normal saline as needed - Antibiotics -received vancomycin and Zosyn in emergency department on 04/17/17. Probable enteric infection, present on admission. Symptoms localized to her abdomen. Tender to palpation, although CT imaging unremarkable. Current urinalysis does not suggest this is a urinary source. - Continue Zosyn for today. Can likely be discharged home without antibiotics. - Await results of culture data Hyperglycemia, acute, present on admission. Blood glucose 158 on admission. She has no history of diabetes. Likely related to stress of sepsis - 4 times a day blood glucose checks - We will order insulin therapy if blood glucose greater than 180. Pleural effusion, possible pulmonary edema. Currently with no respiratory distress on admission. She is very high risk for acute diastolic congestive heart failure. - Monitor respiratory status with fluid resuscitation and discontinue fluids promptly if she develops symptomatic pulmonary edema or hypoxia. Seizure disorder - Continue Keppra Dementia, chronic. With acute metabolic encephalopathy due to sepsis. - Hold nortriptyline and mirtazapine as these are not acutely needed. - She is habituated to low-dose benzodiazepine which we will continue to prevent withdrawal, albeit with risk of paradoxical delirium Coronary and cerebrovascular disease, chronic - Continue metoprolol and clopidogrel DVT prophylaxis with heparin Disposition: Will likely be discharged home in 1-2 days. GI Prophylaxis: H2 dillon VTE Prophylaxis: Sub-Q Heparin (Unfractionated) Resuscitation Status: DNR/DNI:Do Not Resuscitate/Intubate Attending Statement Patient seen and examined with house staff. Agree with all attached documentation. Trisha Ivan DO Apr 19, 2017 17:48 Angel Wilder MD Apr 20, 2017 13:30
[2017-04-19] MEDS ORDERED: LORazepam 0.5 mg Tablet PO PRN (17:50)
--- NOTE | 2017-04-19 18:35 | NUR ---
AFIB/Activity No reports of chest pain/pressure/discomfort. Tele AFIB with RVR and PVCs, 110s-140s at rest this AM. Administered 10mg IV push cardizem per MD orders, HR unchanged. Approx 2 hours later, pushed an additional 25mg IV cardizem, HR dropped to 70s-80s but still in AFIB. Patient did not work with PT today r/t elevated resting HR. No reports of SOB/dizziness. SPO2 on RA 95%. Reports rare non productive cough. No reports of n/v or abdominal pain. Tolerating PO intake well, decreased appetite. Using BSC, has episodes of incontinence, brief on. Per report, patient given bowel meds yesterday and has been up stooling frequently. Patient is alert and oriented to self and family only, does not know year or location. RAJESH, reports full sensation.
[2017-04-20] VITALS (8 sets, daily range): BP systolic 112–147; BP diastolic 64–80; PULSE 89–140; RESP 18–24; O2SAT 95–99
--- NOTE | 2017-04-20 05:47 | NUR ---
Restraints/Agitation After the patient's left last night she became increasingly agitated, confused, and combative. Pt yelling to, "get me out of here!" Pt biting at staff, pulling on clothes ect. Sitter requested. Sitter unavailable. paged regarding the patient's status. PRN/HS Seroquel ordered. Pt refusing medication at this time. UA/GENERAL ACCOUNTANT assisted to speak with patient and try to distract her. Pt eventually calmed. Less than 20 minutes later patient's bed alarm activated, dripping stool through brief onto floor, IV stretched from her arm. Pt assisted to BSC but had no additional stool. Pt assisted to bed and soft wrist restraints placed for safety of patient. Restraints started 04/20/17 @ 0000. Paper order signed by Dr. Corado. Addendum: 04/20/17 at 0655 by GEO ALEXANDER RN (Trent) called at 0640. Trent said he would be in at 0715 this morning.
[2017-04-20] MEDS: LORazepam 0.5 mg Tablet PO SCH ×4 (08:12→21:28)
[2017-04-20] MEDS: levETIRAcetam 500 mg Tablet PO SCH ×2 (08:13→21:30)
[2017-04-20] MEDS: Piperacillin-Tazo 3.375 Gm Inj 3.375 GM in Dextrose 5% Minibag Plus 50 ML IV SCH ×2 (08:14→16:32)
[2017-04-20] MEDS: Heparin 5,000 Unit/mL Inj SUBQ SCH ×2 (08:21→16:41)
[2017-04-20] MEDS: 0.9% Sodium Chloride 1,000 ML IV SCH ×2 (08:23→16:31)
[2017-04-20 08:55] LABS: BASOPHILS % (AUTO) 0.2 % (0-3); EOSINOPHILS % (AUTO) 3.9 % (0-5); Mean Corpuscular Hemoglobin 31.4 pg (27.0-35.0); Mean Corpuscular Volume 95.7 fL (81-100); NEUTROPHILS % (AUTO) 69.6 % (40-74); Platelet Count 133 bil/L (150-400)
--- NOTE | 2017-04-20 10:23 | NUR ---
Re-Evaluation completed. Please go to "Notes" then click on "Assessments and Notes" (bottom left corner of screen). Then select appropriate discipline tab on top of screen.
[2017-04-20] MEDS ORDERED: Potassium Chloride 20 mEq/15 mL 15mL Oral Soln PO ONE (10:55)
--- NOTE | 2017-04-20 14:01 | NUR ---
Nausea/Pain/toileting/ambulation/HR Pt C/O nausea stating she thought she was "going to be sick" after taking her liquid potassium PO, which she also had a snack with. Pt received zofran IV and nausea was relieved. Pt C/O back pain 02/24. Daughter states that pt specifically complains about her lower L back hurting. Pt unable to pinpoint location. Pt received APAP and soon fell asleep, appearing comfortable. Pt stated she needed to have a bowel movement and began losing her bowels and bladder while transferring to the BS. Soft, brown. Pt [place] with 1[place] [facility] [place] steady on feet but able to bear own weight for short transfers. Bed alarm in place for safety. HR increased to around 150s with exertion. Recovers quickly to 90s-100s in a-fib. CBG= 114. and daughter at the bedside.
--- NOTE | 2017-04-20 15:55 | PCM.PNMED ---
Subjective Date of Service Apr 20, 2017 Subjective Gina Wilder is a 86-year-old woman with dementia cerebrovascular and coronary artery disease presents with approximately 1 week of functional decline and acute fever and septic syndrome. Now under treatment for A fib with RVR. Overnight: Patient became very agitated and was attempting to bite staff so she needed to be restrained. Today: The patient feels better this morning is more alert and awake and aware of her surroundings. She notes pain in her sacrum. She denies any palpitations or chest pain. The remainder of ROS is negative except as note above. Exam Vital Signs Vital Sign - Last Date Time Temp Pulse Resp B/P Pulse Ox O2 Delivery O2 Flow Rate FiO2 04/20/17 12:30 36.6 94 18 128/72 97 Room Air Intake and Output 04/19/17 04/19/17 04/20/17 Cumulative From/Thru 15:00 23:00 07:00 04/17/17 14:44 - 04/20/17 06:57 Intake Total 1008 ml 1882 ml 8761 ml Output Total 0 ml 200 ml 1500 ml Balance 1008 ml 1682 ml 7261 ml Intake Oral 448 ml 748 ml IV Total 1008 ml 1434 ml 8013 ml Output Urine Total 200 ml 900 ml Urine/Stool Mix 600 ml Other 0 ml 0 ml # Voids 1 1 # Bowel Movements 1 4 Exam General: Elderly pale woman appears comfortable in a hospital bed. HEENT: sclerae anicteric, oral mucosa moist, neck supple, no sinus or jaw pain Neck: no JVD Chest: clear to auscultation with basilar crackles Cardiac: S1S2, no murmur, irregular rhythm, normal rate. Abdomen: BS present, mildly tender in lower quadrants left greater than right Extremities: Trace pitting edema, no asymmetric leg swelling. Neuro: Alert to simple questions with somewhat appropriate response, cranial nerves symmetric, motor strength 5/5, coordination grossly normal IVs and Medications Medications Reviewed: Medications were reviewed in detail Lab and Diagnostics Result Diagram: 04/20/1784504/20/17845 X-Rays, CTs and MRIs CT ABDOMEN AND PELVIS WITH CONTRAST IMPRESSION: 1. No imaging evidence of pyelonephritis. No hydronephrosis or perinephric abscess. 2. Bilateral indeterminate adrenal nodules. Further evaluation may be obtained with adrenal protocol MRI or CT if clinically indicated. 3. Small hiatal hernia. 4. Colonic diverticulosis. Dictated by: Ryne Hui M.D. on 04/17/2017 at 17:07 PROCEDURE: X-RAY CHEST, TWO VIEWS IMPRESSION: 1. Small pleural effusions and mild pulmonary edema. Dictated by: Ryne Hui M.D. on 04/17/2017 at 17:33 12-lead ECG Probable WAP, rate 88, conduction intervals normal, ST segments unremarkable. Assessment & Plan Gina Wilder is a 86-year-old woman with dementia cerebrovascular and coronary artery disease presents with approximately 1 week of functional decline and acute fever and septic syndrome. Now under treatment for A fib with RVR. A fib with RVR, not present on admission, no prior history of a fib. Currently rate controlled. -May be paroxysmal due to stress. Responded well to IV push of Cardizem 25 mg, may need to repeat. -Consider increasing atenolol dose. If remains in a fib will need to discuss anticoagulation. Probable sepsis, acute present on admission. Resolved. SIRS findings included leukocytosis and fever. Relative hypotension with systolic blood pressure 91/ 43. Not tachycardic but on beta dillon. Lactic acidosis is mild 1.6 at admission.. No significant acute kidney injury or hepatobiliary abnormalities. -Cultures negative so far - Fluid resuscitation with normal saline as needed - Antibiotics -received vancomycin and Zosyn in emergency department on 04/17/17. Probable enteric infection, present on admission. Symptoms localized to her abdomen. Tender to palpation, although CT imaging unremarkable. Current urinalysis does not suggest this is a urinary source. - Continue Zosyn for today. Can likely be discharged home without antibiotics. - Await results of culture data Hyperglycemia, acute, present on admission. Blood glucose 158 on admission. She has no history of diabetes. Likely related to stress of sepsis - 4 times a day blood glucose checks - We will order insulin therapy if blood glucose greater than 180. Pleural effusion, possible pulmonary edema. Currently with no respiratory distress on admission. She is very high risk for acute diastolic congestive heart failure. - Monitor respiratory status with fluid resuscitation and discontinue fluids promptly if she develops symptomatic pulmonary edema or hypoxia. Seizure disorder - Continue Keppra Dementia, chronic. With acute metabolic encephalopathy due to sepsis. - Hold nortriptyline and mirtazapine as these are not acutely needed. - She is habituated to low-dose benzodiazepine which we will continue to prevent withdrawal, albeit with risk of paradoxical delirium Coronary and cerebrovascular disease, chronic - Continue metoprolol and clopidogrel DVT prophylaxis with heparin Disposition: Will likely be discharged home in 1-2 days. GI Prophylaxis: H2 dillon VTE Prophylaxis: Sub-Q Heparin (Unfractionated) Resuscitation Status: DNR/DNI:Do Not Resuscitate/Intubate Attending Statement Patient seen and examined with house staff. Agree with all attached documentation. Trisha Ivan DO Apr 20, 2017 15:47 Angel Wilder MD Apr 20, 2017 16:53
[2017-04-20] MEDS ORDERED: Haloperidol 5 mg/mL Inj IVPUSH ONE (23:15)
[2017-04-21] VITALS (9 sets, daily range): BP systolic 12–138; BP diastolic 57–84; PULSE 80–180; RESP 18–19; O2SAT 97–99
[2017-04-21] MEDS: Heparin 5,000 Unit/mL Inj SUBQ SCH ×3 (00:34→16:18)
[2017-04-21] MEDS: Piperacillin-Tazo 3.375 Gm Inj 3.375 GM in Dextrose 5% Minibag Plus 50 ML IV SCH ×3 (00:35→16:15)
[2017-04-21] MEDS: 0.9% Sodium Chloride 1,000 ML IV SCH ×2 (00:40→13:13)
--- NOTE | 2017-04-21 04:48 | NUR ---
P) Cardiac/Agitation Pt. initially with heart rat ranging between 120-180 in afib with RVR, became agitated immediately after spouse went home for the night, had already had HS meds. managed to pull out both her IV's and had multiple attempts of trying to climb out of bed. Attempting to pinch nurses, oriented x1 only. I) Pt. was restrained for an hour until a sitter could come in and also consulted with Dr. Givens who prescribed a dose of Haldol. E) 15 minutes after haldol pt. was much calmer and able to converse and relax, later able to sleep. heart rate went from 180 to 90's, still in afib. Restraints removed when she dozed off, on only 1 hour.
[2017-04-21] MEDS ORDERED: KCl 40 mEq/D5W 500 mL 40 MEQ in IV Premix 1 EACH IV ONE (07:50)
[2017-04-21] MEDS: LORazepam 0.5 mg Tablet PO SCH ×4 (08:58→21:18)
[2017-04-21] MEDS: levETIRAcetam 500 mg Tablet PO SCH ×2 (09:04→21:16)
--- NOTE | 2017-04-21 09:26 | PCM.ADCARE ---
Advance Care Planning Note Purpose of Encounter: Discussed local care and redefine goals. Parties in Attendance: Patient, and her . Decisional Capacity: She is not decisional, moderate dementia. Subjective: She is feeling better. She does have intermittent palpitations with exertion. Objective: She looks comfortable. She is not dysmetric actinic. Her Her heart is irregular Lungs are clear with no focal findings and normal effort. Goals of Care Determinations: DO NOT RESUSCITATE DO NOT INTUBATE Simple medical measures for easily treatable or resolvable issues, including antibiotics for simple infections and medications for issues such as atrial fibrillation and rate control. Avoid roller Avoid invasive procedures. Tube feeds not addressed. Plan: As above, DNR/DNI. Reasonable medical management for simple issues. CODE STATUS: DO NOT RESUSCITATE Time Spent Adv.Care Plannin minutes Adv. Care Plan Documenation: As above Angel Wilder MD Apr 21, 2017 09:26
--- NOTE | 2017-04-21 13:31 | NUR ---
NUTRITION ASSESSMENT: ASSESS: Pt is an 86yo F admitted for acute fever, septic syndrome and Afib. Pt has history of dementia and has been requiring restraints at night. ST has evaluated pt and placed her on a soft diet with thin liquids. PO intake has been variable at bites-50%. PMHX: Dementia, CAD, CVA, CABG 1994, seizure disorder, and chronic/recurrent colitis symptoms. LABS: Reviewed. K 3.1, Cl 113, Bun 4, Milker Machine .50, Glu 109, Ca 7.6, Alb 3.1 MEDS: Reviewed. Zofran, senna, miralax GI: BMx2 04/20 SKIN: no major issues CURRENT WTS: 66.6kg, BMI 29.7kg/m2, admit wt 58kg, IBW: 43.2kg DIET: soft, PO bites-50% EST. NEEDS: Kcals: 1665-1995kcal/day (25-30kcal/kg) Pro: 65-80g/day (1.0-1.2g/kg) NUTRITION DIAGNOSIS: 1.) Variable PO intake related to AMS as evidence by history of dementia and PO varying from bites-50% NUTRITION INTERVENTION: 1.) Continue diet per ST. Will add Ensure on L tray to help increase kcal/pro intake MONITOR / EVAL: PO, wt, GI, labs, POC, nutrition status. Will continue to monitor per moderate nutrition risk guidelines
--- NOTE | 2017-04-21 15:06 | PCM.PNMED ---
Subjective Date of Service Apr 21, 2017 Subjective Patient is feeling somewhat tired today. She had a difficult night with some agitation and required restraints for 1 hour and Haldol. She is doing better this morning. She is still sleepy. No palpitations, cough or shortness of breath. No chest pain or abdominal pain. Her appetite is poor. No choking. No other overnight events noted. Exam Vital Signs Vital Sign - Last Date Time Temp Pulse Resp B/P Pulse Ox O2 Delivery O2 Flow Rate FiO2 04/21/17 12:28 36.7 96 18 129/84 99 Room Air Intake and Output 04/20/17 04/20/17 04/21/17 Cumulative From/Thru 15:00 23:00 07:00 04/17/17 14:44 - 04/21/17 05:43 Intake Total 1409 ml 1225 ml 44510 ml Output Total 900 ml 2400 ml Balance 509 ml 1225 ml 8995 ml Intake Oral 370 ml 0 ml 1118 ml IV Total 1039 ml 1225 ml 40104 ml Output Urine Total 900 ml 1800 ml Urine/Stool Mix 600 ml Other 0 ml # Voids 1 2 # Bowel Movements 1 0 5 Exam Alert and oriented person, no distress. Fluent speech, somewhat sleepy. Anicteric sclera. Lungs are clear with normal rate and effort Heart is irregular without murmur gallop or rub Abdomen soft nontender, flat Extremities are free of edema. Skin is free of rash or lesions. IVs and Medications Medications Reviewed: Medications were reviewed in detail Lab and Diagnostics Result Diagram: 04/20/17 0846 04/21/17 0525 X-Rays, CTs and MRIs CT ABDOMEN AND PELVIS WITH CONTRAST IMPRESSION: 1. No imaging evidence of pyelonephritis. No hydronephrosis or perinephric abscess. 2. Bilateral indeterminate adrenal nodules. Further evaluation may be obtained with adrenal protocol MRI or CT if clinically indicated. 3. Small hiatal hernia. 4. Colonic diverticulosis. Dictated by: Ryne Hui M.D. on 04/17/2017 at 17:07 PROCEDURE: X-RAY CHEST, TWO VIEWS IMPRESSION: 1. Small pleural effusions and mild pulmonary edema. Dictated by: Ryne Hui M.D. on 04/17/2017 at 17:33 12-lead ECG Probable WAP, rate 88, conduction intervals normal, ST segments unremarkable. Assessment & Plan Gina Wilder is a 86-year-old woman with dementia cerebrovascular and coronary artery disease presents with approximately 1 week of functional decline and acute fever and septic syndrome. Now under treatment for A fib with RVR. A fib with RVR, not present on admission, no prior history of a fib. Currently rate controlled. -May be paroxysmal due to stress. Responded well to IV push of Cardizem 25 mg, may need to repeat. -We will continue metoprolol at current dosing and use only aspirin for anticoagulation. Probable sepsis, acute present on admission. Resolved. SIRS findings included leukocytosis and fever. Relative hypotension with systolic blood pressure 91/ 43. Not tachycardic but on beta dillon. Lactic acidosis is mild 1.6 at admission.. No significant acute kidney injury or hepatobiliary abnormalities. -Cultures negative so far - Fluid resuscitation with normal saline as needed - Antibiotics -received vancomycin and Zosyn in emergency department on 04/17/17. We will continue Zosyn and then convert to oral antibiotics tomorrow for another 7 days. Probable enteric infection, present on admission. Symptoms localized to her abdomen. Tender to palpation, although CT imaging unremarkable. Current urinalysis does not suggest this is a urinary source. - Continue Zosyn for today. Can likely be discharged home without antibiotics. -Culture data is negative Hyperglycemia, acute, present on admission. Blood glucose 158 on admission. She has no history of diabetes. Likely related to stress of sepsis, improving. - 4 times a day blood glucose checks - We will order insulin therapy if blood glucose greater than 180. Pleural effusion, possible pulmonary edema. POA, improving. Currently with no respiratory distress on admission. She is very high risk for acute diastolic congestive heart failure. - Monitor respiratory status with fluid resuscitation and discontinue fluids promptly if she develops symptomatic pulmonary edema or hypoxia. Follow clinically Seizure disorder, POA and stable - Continue Keppra Dementia, chronic. POA and stable. With acute metabolic encephalopathy due to sepsis. - Hold nortriptyline and mirtazapine as these are not acutely needed. - She is habituated to low-dose benzodiazepine which we will continue to prevent withdrawal, albeit with risk of paradoxical delirium Coronary and cerebrovascular disease, POA and stable. - Continue metoprolol and clopidogrel DVT prophylaxis with heparin Disposition: Will likely be discharged home with home health RN, physical therapy and SODA CLERK on April 22 GI Prophylaxis: H2 dillon VTE Prophylaxis: Sub-Q Heparin (Unfractionated) Resuscitation Status: DNR/DNI:Do Not Resuscitate/Intubate Angel Wilder MD Apr 21, 2017 15:06
--- NOTE | 2017-04-21 15:58 | NUR ---
HR/MD communication/Speech/K+/CBG HR up into the 110s today with exertion. Otherwise tele a-fib 80s-90s. MD notified of tachycardia and anxiety during maintenance mechanic 2nd shift. No new orders at this time. MD instruct to "play it by ear." Pt diet order changed to "soft" post speech eval. IV potassium given for K= 3.1. Physical therapy worked with pt; instructed to allow pt to go into the bathroom if she wants but must be +1 assist with a gait belt. Pt has continued to use the BSC. CBGs 91 and 133. Addendum: 04/21/17 at 1839 by BLADE HERNANDEZ RN Respiratory Pt became quite wheezy this evening. Respiratory rate 22/min. O2 95% RA. Pt states feeling SOB. Per MD note to DC fluids if symptomatic and per studio operations engineer in charge instruction, NS stopped. Pt still has pipercillin running at 12.5/hr.
--- NOTE | 2017-04-21 16:45 | NUR ---
Social Work Note: Continued Discharge Planning Data& Assessment: Per MD order, SW met with pt at bedside to discuss Home Health preferences, list provided. PT recommending SNF, however after MD conversation with pt family. Pt family prefers to go home with home health as pt family believes pt mentation will improve in her home environment. Pt family does not have a home health preference and agrees to go with whichever agency can see them the soonest. Per Charmaine from [facility], RN would not be able to see pt until Wednesday and PT would not be able to see pt until Wednesday. Per Pantera from [facility], if pt is D/C tomorrow, pt would be seen Monday 04/23. Referral provided to [facility], access provided. Pt family would like RN, PT, Bath aid and SW. MD notified and agreeable to plan. SW to continue to follow for further MD orders and pt needs. Plan: Anticipated discharge home via POV with [facility] PT, RN, Bath aid and SW to follow. SW to continue to follow for further MD orders and pt needs. SALINA Sidhu
[2017-04-21] MEDS ORDERED: Furosemide 10 mg/mL 4 mL Inj IVPUSH ONE (18:45)
--- NOTE | 2017-04-21 20:03 | NUR ---
P) Transfer Pt. transferred to room 3026, spouse aware, report given to Santiago Villalobos RN, pt. is still a PCC pt. in a transfer pod.
[2017-04-21] MEDS ORDERED: Haloperidol 5 mg/mL Inj IV ONE (21:30)
[2017-04-22 00:29] VITALS: BP 155/82; PULSE 122; RESP 20; O2SAT 96
[2017-04-22] MEDS: Heparin 5,000 Unit/mL Inj SUBQ SCH ×2 (00:57→08:47)
[2017-04-22] MEDS: Piperacillin-Tazo 3.375 Gm Inj 3.375 GM in Dextrose 5% Minibag Plus 50 ML IV SCH ×2 (00:57→08:56)
[2017-04-22 04:23] VITALS: BP 146/86; PULSE 123; RESP 20; O2SAT 96
[2017-04-22 05:57] VITALS: PULSE 104
--- NOTE | 2017-04-22 06:03 | NUR ---
Received Received from [facility] to room 3026. Alert and confused at baseline. Tele AFib 90's @ rest and 120's with activity. Denies CP or discomfort. RA without c/o SOB. Urinary frequency with over 4L urinary output this shift r/t Lasix administration. Denies n/v or issues with PO intake outside of occasional swallowing difficulty. Attempts to reorient to room, hospital and call light use but unsuccessful r/t dementia. Rails up x3, pressure alarm and 1:1 provided for patient safety.
[2017-04-22] MEDS: LORazepam 0.5 mg Tablet PO SCH ×2 (06:19→12:42)
[2017-04-22 08:00] VITALS: PULSE 144
[2017-04-22] MEDS: levETIRAcetam 500 mg Tablet PO SCH (08:34)
[2017-04-22 09:05] VITALS: BP 134/75; PULSE 77; RESP 19; O2SAT 95
[2017-04-22 10:06] LABS: Mean Corpuscular Hemoglobin 31.2 pg (27.0-35.0); Mean Corpuscular Volume 95.5 fL (81-100)
[2017-04-22] MEDS ORDERED: Potassium Chloride 20 mEq SR Tablet PO ONE (11:25)
--- NOTE | 2017-04-22 12:58 | NUR ---
Social Work: Readiness for Discharge D: EMR reviewed. Pt is on day 5 of hospitalization. Per MD in AM multi-disciplinary rounds, pt is medically stable for discharge today. SW faxed completed F2F to [facility]. SW confirmed pt will discharge today. Pt to discharge home with spouse via POV and open with Jennifer PERSON RN PT FINISH PATCHER and SECOND HELPER. SW will continue to follow for needs. A: Pt to discharge home and open with Jennifer PERSON RN PT FINISH PATCHER and SECOND HELPER - which has deemed medically necessary by MD. P: Pt to discharge home with spouse via POV and open with Jennifer PERSON RN PT FINISH PATCHER and SECOND HELPER. SW will continue to follow for needs. SALINA Shelton
[2017-04-22 13:00] VITALS: BP 127/68; PULSE 93; RESP 20; O2SAT 96
--- NOTE | 2017-04-22 13:55 | PCM.DIMED ---
Discharge Instructions Date of Service Apr 22, 2017 Dates of Hospitalization Apr 17, 2017 at 18:33 Discharge Diagnosis Discharge Diagnosis sepsis, atrial fib Diet Discharge Diet: Heart Healthy Activity Discharge Activity: No restrictions Call your provider Call your provider for: Fever or Chills, Shortness of breath, Bleeding, Chest pain Patient Instructions Follow-up with PCP in: 1 week Elvin Valdivia MD Apr 22, 2017 13:55
[2017-04-22] MEDS ORDERED: AMOX-366 PO (13:57)
[2017-04-22] MEDS ORDERED: METO25TA6 PO (13:57)
--- NOTE | 2017-04-22 15:20 | NUR ---
Discharge Pt discharged home with via private vehicle. Pt's verbalized understanding of discharge, new Rx, and follow up instructions, personal belongings accounted for and left with pt.
--- NOTE | 2017-04-22 15:27 | NUR ---
Social Work: Discharge D: EMR reviewed. Pt is on day 5 of hospitalization. Per MD in AM multi-disciplinary rounds, pt is medically stable for discharge today. KECIA faxed completed F2F to [facility]. KECIA confirmed pt will discharge today. Pt to discharge home with spouse via POV and open with Jennifer RN PT TWITCHELL OPERATOR and OUTREACH CONSULTANT. SW will continue to follow for needs. A: Pt to discharge home and open with Jennifer PERSON RN PT TWITCHELL OPERATOR and OUTREACH CONSULTANT - which has deemed medically necessary by MD. P: Pt to discharge home with spouse via POV and open with Jennifer PERSON RN PT TWITCHELL OPERATOR and OUTREACH CONSULTANT. KECIA received T/C from Pantera at [facility] confirming Jennifer has received F2F and all necessary MD orders to open with pt after discharge. SALINA Shelton
--- NOTE | 2017-04-22 18:44 | PCM.DC.MED ---
Discharge Summary Date of Service Apr 22, 2017 Dates of Hospitalization Date of Hospital Admission Apr 17, 2017 at 18:33 Date of Discharge: Apr 22, 2017 Providers: Admitting Physician: Yuriy Valdivia MD Primary Care Physician: Marty Barber MD Attending Physician: Yuriy Valdivia MD Diagnosis at Time of Discharge Diagnosis at Time of Discharge sepsis, atrial fib Consultations urology Procedures XRay, CTs & MRIs CT ABDOMEN AND PELVIS WITH CONTRAST IMPRESSION: 1. No imaging evidence of pyelonephritis. No hydronephrosis or perinephric abscess. 2. Bilateral indeterminate adrenal nodules. Further evaluation may be obtained with adrenal protocol MRI or CT if clinically indicated. 3. Small hiatal hernia. 4. Colonic diverticulosis. Dictated by: Ryne Hui M.D. on 04/17/2017 at 17:07 PROCEDURE: X-RAY CHEST, TWO VIEWS IMPRESSION: 1. Small pleural effusions and mild pulmonary edema. Dictated by: Ryne Hui M.D. on 04/17/2017 at 17:33 ECG 12 Lead Probable WAP, rate 88, conduction intervals normal, ST segments unremarkable. Brief History The patient has moderate dementia and requires assistance with self care provided by her at baseline. Actually one week ago she began to experience presyncopal symptoms and worsened ambulation. She was evaluated at emergency department and treated for urinary tract infection. Urinalysis showed 11-50 pyuria, but culture showed only 25,000 CFU of normal lakshmi. She returned home on nitrofurantoin, but continued to be intermittently less active and more confused. On day of admission she awakened approximate 6 AM and identified abdominal pain. She was able to eat breakfast and take morning medications with assistance. Later in the morning she experienced worsened confusion, difficulty in ambulation, confused speech, and increasing complaints of abdominal pain. She was observed to breathe hard at times and report severe chills. She felt febrile. She did not report headache, neck ache, cough, chest pain. Hospital Course Gina Wilder is a 86-year-old woman with dementia cerebrovascular and coronary artery disease presents with approximately 1 week of functional decline and acute fever and septic syndrome. Now under treatment for A fib with RVR. A fib with RVR, not present on admission, no prior history of a fib. Currently rate controlled. -May be paroxysmal due to stress. Responded well to IV push of Cardizem 25 mg, may need to repeat. -We will continue metoprolol at current dosing and use only aspirin for anticoagulation. Probable sepsis, acute present on admission. Resolved. SIRS findings included leukocytosis and fever. Relative hypotension with systolic blood pressure 91/ 43. Not tachycardic but on beta dillon. Lactic acidosis is mild 1.6 at admission.. No significant acute kidney injury or hepatobiliary abnormalities. -Cultures negative so far - Fluid resuscitation with normal saline as needed - Antibiotics -received vancomycin and Zosyn in emergency department on 04/17/17. We will continue Zosyn and then convert to oral antibiotics tomorrow for another 7 days. Probable enteric infection, present on admission. Symptoms localized to her abdomen. Tender to palpation, although CT imaging unremarkable. Current urinalysis does not suggest this is a urinary source. - Continue Zosyn for today. Can likely be discharged home without antibiotics. -Culture data is negative Hyperglycemia, acute, present on admission. Blood glucose 158 on admission. She has no history of diabetes. Likely related to stress of sepsis, improving. - 4 times a day blood glucose checks - We will order insulin therapy if blood glucose greater than 180. Pleural effusion, possible pulmonary edema. POA, improving. Currently with no respiratory distress on admission. She is very high risk for acute diastolic congestive heart failure. - Monitor respiratory status with fluid resuscitation and discontinue fluids promptly if she develops symptomatic pulmonary edema or hypoxia. Follow clinically Seizure disorder, POA and stable - Continue Keppra Dementia, chronic. POA and stable. With acute metabolic encephalopathy due to sepsis. - Hold nortriptyline and mirtazapine as these are not acutely needed. - She is habituated to low-dose benzodiazepine which we will continue to prevent withdrawal, albeit with risk of paradoxical delirium Coronary and cerebrovascular disease, POA and stable. - Continue metoprolol and clopidogrel Patient steadily improved during the hospitilization. Her cultures remained negative. her probable sepsis did resolve. She subsequently was sent home on a course of antibiotics to complete started therapy. Otherwise the Atrila fibrillation was rate controlled. If desired, family can pursue further evaluation on outpatient basis. She is at high risk for stroke with her elevated [id number] SCORE, however they did not want full anticoagulation. also , her atenolol was stopped and she was discharged on metoprolol Exam Vital Signs (Last) Date Time Temp Pulse Resp B/P Pulse Ox O2 Delivery O2 Flow Rate FiO2 04/22/17 13:00 36.8 93 20 127/68 96 Room Air Test 04/17/17 14:50 04/17/17 15:10 04/18/17 02:05 04/19/17 03:50 Troponin T < 0.010ug/L (0.0-0.011) Urine Color Dark yellow (YELLOW) Urine Appearance Clear (CLEAR,HAZY) Urine pH 7.0 (5.0-8.0) Urine Specific [place] 1.015 (1.003-1.035) Urine Protein Negativemg/dL (NEG,TRACE) Urine Glucose (UA) Negativemg/dL (NEGATIVE) Urine Ketones Negativemg/dL (NEGATIVE) Urine Occult Blood Small (NEGATIVE) Urine Nitrite Negative (NEGATIVE) Urine Bilirubin Negative (NEGATIVE) Urine Urobilinogen Normalmg/dL (NORMAL) Urine Leukocyte Esterase Trace (NEGATIVE) Urine RBC 11-50/hpf (0-2) Urine WBC 0-5/hpf (0-5) Urine Epithelial Cells Few/hpf (NONE-MOD) Urine Crystals None seen (NONE SEEN) Urine Bacteria Few/hpf (NONE-FEW) Urine Hyaline Casts None/lpf (NONE) Urine Granular Casts None seen (NONE SEEN) Urine Waxy Casts None seen (NONE SEEN) Urine Red Blood Cell Casts None seen (NONE SEEN) Urine White Blood Cell Casts None seen (NONE SEEN) Urine Mucus Present (None Seen) Urine Trichomonas None seen (NONE SEEN) Urine Yeast None (NONE SEEN) Urinalysis Comment None Urine Culture Reflexed Indicated Lactic Acid Level 1.6mmol/L (0.4-2.0) Lactate Dehydrogenase 194U/L (100-190) Procalcitonin 0.24ng/mL (0.00-0.08) Test 04/20/17 08:46 04/22/17 09:45 Neutrophils (%) (Auto) 69.6% (40-74) Lymphocytes (%) (Auto) 15.3% (14-46) Monocytes (%) (Auto) 11.0% (4-12) Eosinophils (%) (Auto) 3.9% (0-5) Basophils (%) (Auto) 0.2% (0-3) White Blood Count 7.4th/mm3 (3.8-10.1) Red Blood Count 3.59mil/mm3 (3.90-5.20) Hemoglobin 11.2g/dL (12.0-15.6) Hematocrit 34.3% (35.0-46.0) Mean Corpuscular Volume 95.5fL (81-100) Mean Corpuscular Hemoglobin 31.2pg (27.0-35.0) Mean Corpuscular Hemoglobin Concent 32.7% (32.0-37.0) Red Cell Distribution Width 13.4% (12.3-15.4) Platelet Count 196bil/L (150-400) Sodium Level 143mEq/L (134-144) Potassium Level 3.1mEq/L (3.5-5.2) Chloride Level 104mEq/L (97-108) Carbon Dioxide Level 24mmol/L (18-29) Blood Urea Nitrogen 3mg/dL (8-27) Creatinine 0.63mg/dL (0.57-1.00) Estimat Glomerular Filtration Rate 128mL/min (>59) Glucose Level 124mg/dL (60-99) Calcium Level 8.3mg/dL (8.5-10.1) Magnesium Level 1.8mg/dL (1.6-2.6) Total Bilirubin 0.4mg/dL (0.0-1.2) Aspartate Amino Transf (AST/SGOT) 23U/L (0-50) Alanine Aminotransferase (ALT/SGPT) 15U/L (0-32) Alkaline Phosphatase 41U/L (25-165) Total Protein 5.8g/dL (6.4-8.4) Albumin 3.2g/dL (3.4-5.0) Discharge Medications Discharge Medications Acetaminophen (Acetaminophen) 500 Mg Capsule 500 MG PO TID (Reported) Amoxicillin/Clav K 875-125 mg (Augmentin 875-125 mg) 1 Each Tablet 1 TABLET PO BID Prescribed by: YURIY VALDIVIA MD Clopidogrel Bisulfate (Plavix) 75 Mg Tablet 75 MG PO DAILY (Reported) Levetiracetam (Keppra) 500 Mg Tablet 500 MG PO BID (Reported) Metoprolol Tartrate (Metoprolol Tartrate) 25 Mg Tablet 25 MG PO BID Prescribed by: YURIY VALDIVIA MD Mirtazapine (Remeron) 15 Mg Tablet 15 MG PO HS (Reported) Nortriptyline (Nortriptyline) 10 Mg Capsule 10 MG PO DAILY AFTER DINNER ( Reported) Simvastatin (Simvastatin) 40 Mg Tablet 40 MG PO PM (Reported) As needed Acetaminophen/Codeine 300-30mg (Acetaminophen/Codeine 300-30mg) 1 Each Tablet 1 TABLET PO 2000 daily PRN PRN Pain (Reported) Docusate Sodium (Colace) 100 Mg Capsule 100 MG PO BID PRN PRN For Constipation ( Reported) Lorazepam (Ativan) 0.5 Mg Tablet 0.25 MG PO 1400 PRN PRN For Insomnia (Reported ) Omeprazole (Omeprazole) 20 Mg Capsule.dr 0 PO PRN PRN PRN FOR STOMACH (Reported ) Followup Plan Discharge Diet: Heart Healthy Discharge Activity: No restrictions Follow-up with PCP in: 1 week Yuriy Valdivia MD Apr 22, 2017 18:44
--- NOTE | 2017-04-23 12:46 | NUR ---
Social Work: Late Note FORENSIC IDENTIFICATION SPECIALIST received phone call from pt's spouse on 04/23/17 inquiring about HH. FORENSIC IDENTIFICATION SPECIALIST explained that it was all set up and that Jennifer should be calling them today or tomorrow. All questions and concerns answered. SALINA Ghotra
== END 2017-04-22 15:08 | disposition home health service (06) | DRG 871 ==
LOC: SED 14:43 → PCC 18:33 → MPC 04-21 19:58
PROVIDERS: ADMIT Family Medicine; ATTEND Internal Medicine
DX: A41.9 Sepsis, unspecified organism (principal); G93.40 Encephalopathy, unspecified; J90 Pleural effusion, not elsewhere classified; A09 Infectious gastroenteritis and colitis, unspecified; I48.0 Paroxysmal atrial fibrillation; G40.909 Epilepsy, unspecified, not intractable, without status epilepticus; F03.90 Unspecified dementia, unspecified severity, without behavioral disturbance, psychotic disturbance, mood disturbance, and anxiety; I25.10 Atherosclerotic heart disease of native coronary artery without angina pectoris; K57.90 Diverticulosis of intestine, part unspecified, without perforation or abscess without bleeding; E11.65 Type 2 diabetes mellitus with hyperglycemia; Z66 Do not resuscitate; Z86.73 Personal history of transient ischemic attack (TIA), and cerebral infarction without residual deficits; Z87.891 Personal history of nicotine dependence

== ENCOUNTER 2017-05-07 19:26 | Emergency (ER) | payer MEDICARE ==
[~2017-05-07] VITALS: Ht 149.9 cm; Wt 58.0 kg
[~2017-05-07 19:26] MED LIST changes: +ACET1TAB42 PO; +ACET500C49 PO; +AMOX-366 PO; -ASPI-628 PO; -ATEN25TA PO; +DOCU-41 PO; -DONE5TAB4 PO; +KEP500TA PO; -LISI1TAB9 PO; +LORA-302 PO; +METO25TA6 PO; +MIRT15TA PO; -NITR100C PO; -NITROSTAT
[2017-05-07 19:40] VITALS: BP 147/81; PULSE 76; RESP 16; O2SAT 99
== END 2017-05-07 20:54 | disposition left against medical advice (07) ==
LOC: SED 19:26
DX: R10.9 Unspecified abdominal pain (principal); R51 Headache; Z53.29 Procedure and treatment not carried out because of patient's decision for other reasons

== ENCOUNTER 2017-05-08 11:35 | Emergency (ER) | payer MEDICARE ==
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
[2017-05-08 11:55] VITALS: BP 140/90; PULSE 105; RESP 14; O2SAT 94
== END 2017-05-08 13:55 | disposition home or self-care (01) ==
LOC: SED 11:35 → EDUNIT# 11:35 → EDBD 11:35 → SED 13:55
DX: F43.0 Acute stress reaction (principal); I25.10 Atherosclerotic heart disease of native coronary artery without angina pectoris; F03.90 Unspecified dementia, unspecified severity, without behavioral disturbance, psychotic disturbance, mood disturbance, and anxiety; Z86.73 Personal history of transient ischemic attack (TIA), and cerebral infarction without residual deficits; Z95.5 Presence of coronary angioplasty implant and graft; Z87.891 Personal history of nicotine dependence

== ENCOUNTER 2017-06-09 16:40 | Emergency (ER) | payer MEDICARE ==
[2017-06-09 16:48] VITALS: BP 139/107; PULSE 90; RESP 16; O2SAT 95
--- NOTE | 2017-06-09 16:48 | ED.REPORT ---
HPI-Trauma Minor / Fall Date of Service Jun 09, 2017 ED Provider: Lewis Ring MD Patient is a 86 y/o female with a history of dementia, stroke, hypertension, and CABG x3 who presents to the ED via EMS c/o lower back pain s/p a ground level fall onset one hour ago. EMS states that the patient lives at home with her when he witnessed her stand up too quickly, lose her balance, and fall on the ground onto her bottom and hit her head. When EMS asked the patient to stand, she said she couldn't because it hurt too much in her lower back. Additional symptoms include anxiety and pain at her coccyx. Pt denies loss of consciousness, focal weakness, headache, fevers, nausea, or vomiting. She was given Tylenol for her pain by her . Nursing Notes Stated Complaint: GLF Chief Complaint: Back Pain or Injury Nursing Notes Reviewed: Yes Allergies: Coded Allergies: No Known Allergies (Unverified Allergy, Unknown, 04/17/17) Scheduled Acetaminophen (Acetaminophen) 500 Mg Capsule 500 MG PO TID Amoxicillin/Clav K 875-125 mg (Augmentin 875-125 mg) 1 Each Tablet 1 TABLET PO BID Clopidogrel Bisulfate (Plavix) 75 Mg Tablet 75 MG PO DAILY Levetiracetam (Keppra) 500 Mg Tablet 500 MG PO BID Metoprolol Tartrate (Metoprolol Tartrate) 25 Mg Tablet 25 MG PO BID Mirtazapine (Remeron) 15 Mg Tablet 15 MG PO HS Nortriptyline (Nortriptyline) 10 Mg Capsule 10 MG PO DAILY AFTER DINNER Simvastatin (Simvastatin) 40 Mg Tablet 40 MG PO PM Scheduled PRN Acetaminophen/Codeine 300-30mg (Acetaminophen/Codeine 300-30mg) 1 Each Tablet 1 TABLET PO 2000 daily PRN PRN Pain Docusate Sodium (Colace) 100 Mg Capsule 100 MG PO BID PRN PRN For Constipation Lorazepam (Ativan) 0.5 Mg Tablet 0.25 MG PO 1400 PRN PRN For Insomnia Omeprazole (Omeprazole) 20 Mg Capsule.dr 0 PO PRN PRN PRN FOR STOMACH General Time Seen by MD: 16:48 Chief Complaint Fall Hx Obtained From: Spouse, EMS Arrived By: Ambulance Onset Occurred: 1 - 4 hours ago Symptom Duration: Constant Location: Back Quality: Painful Severity: Current: Moderate Severity: Maximum: Severe Pertinent Negative: Relieved by nothing Recent Healthcare: No recent doctor visit, Recent hospitalization Similar Sx Previous: No Past Medical History Past Medical History Notes: PCP: Dr. Marty Barber Past Medical History CAD CVA Dementia Hypertension CABGx3 UTI Past Surgical History Coronary bypass 25 Stent placement Smoking History Former Smoker Social History Other Social History: Good social support, , Local resident Ambulatory Status Independent Review of Systems Constitutional: Denies: Fever Musculoskeletal: Reports: Back pain Neurologic: Denies: Change LOC, Focal weakness, Headache Complete sys rev & neg: except as marked. GI: Denies: Nausea, Vomiting Psychiatric: Reports: Anxiety Physical Exam Initial Vital Signs Vital Signs (First) Date Time Temp Pulse Resp B/P Pulse Ox O2 Delivery O2 Flow Rate FiO2 06/09/17 16:48 36.1 90 16 139/107 95 Room Air Initial VS: Reviewed, Unavailable Head / Eyes: Atraumatic, Normocephalic Skin: Warm, Dry, No cyanosis Neurologic: Alert, Oriented, Nonfocal Psychiatric: Mood/affect normal, Behavior normal, Normal thought content General/Constitutional: Awake, Alert Neck: Supple, Full range of motion Respiratory / Chest: Atraumatic, Breath sounds NL, Breath sounds = bilat, No respiratory distress Cardiovascular: Heart rate NL, Regular rhythm, Heart sounds NL Back: Atraumatic, Inspection NL No tenderness in lower thoracic-lumbar spine Lower Extremity / Pelvis / MS: Atraumatic, Inspection NL, Pelvis stable No rotation in lower extremities Interpretation & Diagnostics Lab Results Interpretation Result Diagram: 06/09/17 1709 06/09/17 1709 Test 06/09/17 17:09 White Blood Count 11.8th/mm3 (3.8-10.1) Red Blood Count 3.89mil/mm3 (3.90-5.20) Hemoglobin 12.1g/dL (12.0-15.6) Hematocrit 37.2% (35.0-46.0) Mean Corpuscular Volume 95.6fL (81-100) Mean Corpuscular Hemoglobin 31.1pg (27.0-35.0) Mean Corpuscular Hemoglobin Concent 32.5% (32.0-37.0) Red Cell Distribution Width 13.4% (12.3-15.4) Platelet Count 186bil/L (150-400) Neutrophils (%) (Auto) 75.2% (40-74) Lymphocytes (%) (Auto) 13.6% (14-46) Monocytes (%) (Auto) 9.9% (4-12) Eosinophils (%) (Auto) 0.5% (0-5) Basophils (%) (Auto) 0.2% (0-3) Sodium Level 140mEq/L (134-144) Potassium Level 3.4mEq/L (3.5-5.2) Chloride Level 103mEq/L (97-108) Carbon Dioxide Level 24mmol/L (18-29) Blood Urea Nitrogen 14mg/dL (8-27) Creatinine 0.62mg/dL (0.57-1.00) Estimat Glomerular Filtration Rate 130mL/min (>59) Glucose Level 126mg/dL (60-99) Calcium Level 9.0mg/dL (8.5-10.1) Magnesium Level 2.3mg/dL (1.6-2.6) Total Bilirubin 0.3mg/dL (0.0-1.2) Aspartate Amino Transf (AST/SGOT) 19U/L (0-50) Alanine Aminotransferase (ALT/SGPT) 13U/L (0-32) Alkaline Phosphatase 55U/L (25-165) Total Protein 7.0g/dL (6.4-8.4) Albumin 4.0g/dL (3.4-5.0) Hold Jose Top Tube Received (Received) X-Ray Interpretation Xray Interpretation: Pelvis X-Ray: IMPRESSION: No displaced fracture. No acute osseous lesion. If there are persistent symptoms or clinical suspicion for pathology, then repeat radiographs or advanced imaging (CT, MRI or bone scan) should be considered for further evaluation. Dictated by: Dominique York MD, PhD on 06/09/2017 at 17:40 Approved by: Dominique York MD, PhD on 06/09/2017 at 17:40 X-Ray Ordered: Pelvis Interpretation / Wet Read by: Interpret - Radiologist CT Head Interpretation IMPRESSION: No acute intracranial disease process. Dictated by: Dominique York MD, PhD on 06/09/2017 at 17:47 Approved by: Dominique York MD, PhD on 06/09/2017 at 17:49 Study: Head CT no contrast Interpretation / Wet Read by: Interpret - Radiologist Re-Eval/Medical Decision Source of Hx: Old records Re-Evaluation/Progress #1: Time of Eval: 18:40 Patient Status: Condition improved Re-Evaluation/Progress Note: Pt rechecked. Pt performed road test without any cause of concerns or issues. Re-Evaluation/Progress #2: Time of Eval: 19:31 Patient Status: Condition improved Re-Evaluation/Progress Note: Patient rechecked. Pt was moving around without distress and seemed comfortable. Discussed plan for discharge. Patient understands and agrees with plan. F/U instructions and RTER warnings given. All questions addressed at this time. Counseled Regarding: Diagnosis, Lab results, Need for follow-up, When/why to return to ED Discharge & Departure Impression: Primary Impression: Fall from ground level Disposition: Home Discharge Condition All VS Reviewed: Yes Condition: Stable Additional Instructions: Thank you for entrusting us with your care today. Your emergency department evaluation today including examination, lab work, head CT and pelvic x-ray are without injury. Take your regular medication as prescribed. May use tylenol as needed for pain Please call your primary care physician tomorrow in order to schedule a follow- up appointment for a recheck. Please return to the emergency department for any new or worsening conditions including any difficulty breathing, fevers, chills, nausea, vomiting, chest pain , lightheadedness, headache, vomiting or weakness. Referrals: Marty Barber MD (PCP) Scribe Attestation Portions of this note were transcribed by Fany Kim. I, Dr. Dhaliwal, personally performed the history, physical exam and medical decision-making; I reviewed and confirmed the accuracy of the information in the transcribed note. copies to: Marty Barber MD, Donald L MD Jun 09, 2017 16:48 Fany Kim Jun 09, 2017 16:54
[2017-06-09 17:12] LABS: BASOPHILS % (AUTO) 0.2 % (0-3); EOSINOPHILS % (AUTO) 0.5 % (0-5); MONOCYTES % (AUTO) 9.9 % (4-12); Mean Corpuscular Hemoglobin 31.1 pg (27.0-35.0); Mean Corpuscular Volume 95.6 fL (81-100); NEUTROPHILS % (AUTO) 75.2 % (40-74); Platelet Count 186 bil/L (150-400)
[2017-06-09 17:39] LABS: Magnesium 2.3 mg/dL (1.6-2.6)
--- NOTE | 2017-06-09 17:42 | DRSVH ---
PROCEDURE: X-RAY PELVIS, ONE OR TWO VIEWS ([id number]) INDICATIONS: fall with sacral pain TECHNIQUE: 1 view(s) of the pelvis acquired. COMPARISON: None. FINDINGS: Bones: No fractures or dislocations. No suspicious bony lesions. Soft tissues: Visualized bowel gas pattern is normal. No suspicious soft tissue calcifications. IMPRESSION: No displaced fracture. No acute osseous lesion. If there are persistent symptoms or clin ical suspicion for pathology, then repeat radiographs or advanced imaging (CT, MRI or bone scan) shou ld be considered for further evaluation. Dictated by: Dominique York MD, PhD on 06/09/2017 at 17:40 Approved by: Dominique York MD, PhD on 06/09/2017 at 17:40
--- NOTE | 2017-06-09 17:50 | DRSVH ---
PROCEDURE: CT BRAIN WITHOUT CONTRAST ([id number]) INDICATIONS: fall hit head TECHNIQUE: Noncontrast 4.5 mm thick angled axial sections acquired from the foramen magnum to the vertex, with c oronal reformats. COMPARISON: None. FINDINGS: Image quality: Excellent. CSF spaces: Basal cisterns are patent. No extra-axial fluid collections. The ventricles are symmet jerad in size and shape. Brain: No intracranial bleeds or masses. There is cerebral volume loss for age, with resultant vent ricular and sulcal prominence. There are periventricular and deep white matter chronic small vessel ischemic changes. There is intracranial internal carotid artery atherosclerosis. Skull and face: Calvarium and visualized facial bones appear intact, without suspicious lesions. Sinuses: Visualized sinuses and mastoids are clear. IMPRESSION: No acute intracranial disease process. Dictated by: Dominique York MD, PhD on 06/09/2017 at 17:47 Approved by: Dominique York MD, PhD on 06/09/2017 at 17:49
[2017-06-09 20:10] VITALS: BP 110/85; PULSE 87; RESP 18; O2SAT 94
== END 2017-06-09 20:11 | disposition home or self-care (01) ==
LOC: EDBD 16:40 → EDUNIT# 16:40 → SED 16:40
DX: M54.5 Low back pain (principal); F41.9 Anxiety disorder, unspecified; W01.0XXA Fall on same level from slipping, tripping and stumbling without subsequent striking against object, initial encounter; Y93.89 Activity, other specified; Y99.8 Other external cause status; Y92.018 Other place in single-family (private) house as the place of occurrence of the external cause; I10 Essential (primary) hypertension; I25.10 Atherosclerotic heart disease of native coronary artery without angina pectoris; Z87.440 Personal history of urinary (tract) infections; Z87.891 Personal history of nicotine dependence; Z86.73 Personal history of transient ischemic attack (TIA), and cerebral infarction without residual deficits; Z95.1 Presence of aortocoronary bypass graft